=== PATIENT | female | born 1985 | race Caucasian/White ===

== ENCOUNTER 2025-03-24 00:57 | Emergency (ER) | payer OTHER, SELFPAY ==
[2025-03-24 01:00] VITALS: BP 133/82; PULSE 68; RESP 16; TEMP 36.3; O2SAT 99
--- NOTE | 2025-03-24 01:07 | W.ED.GENAD ---
Discharge Plan Disposition Patient Disposition: Home Condition: Good Discharge Details Clinical Impression: Acute rhinosinusitis Primary Care Provider: Violeta Santizo ED Provider: Alba Taylor Home Meds and New Rx's Prescriptions: Continued acetaminophen 500 mg capsule 500 mg PO Q6H PRN Discharge Instructions Instructions: Sinusitis, Adult ED Additional Instructions: Tylenol over the counter for pain. You can use oxymetazoline nasal spray for up to three days- this should help with your symptoms. Use in both nasal passages. Use the fluticasone spray- 2 sprays in each nares daily. Do this after your saline irrigation. You can continue to use saline to irrigate your nasal passages; this may be more effective once you start using the other nasal sprays. You can also take Benadryl (diphehydramine) to help dry out your sinuses; follow the directions on the bottle. Call your primary care doctor in the morning to schedule an appointment for within the next 72 hours to followup on your visit here. Return to the emergency department for new or worsening symptoms including fever, if your symptoms after not improving after 48 hours of treatment, if you develop vision changes, your eye seems swollen, your eye is not moving normally, or if you have any other concerns. HPI General Mode of arrival: ambulatory. Date/Time Provider Initiated Documentation: 03/24/25 01:07. Limitations to Documentation: no limitations. Information obtained by: patient. HPI Narrative: 39yo F reports being ~6 weeks presenting with facial pain. Has had about one week of URI symptoms; rhinnorhea, cough, sore throat which have been improving. For the past 24 hours has noted left sided facial pain which is persitant and worsening, unrelieved by home tylenol. Is keeping her awake. No purulent nasal discharge. No vision changes. Systemically well with no fevers. Related Data Home Medications ?Medication ?Instructions ?Recorded ?Confirmed acetaminophen 500 mg capsule 500 mg PO Q6H PRN 03/24/25 03/24/25 Allergies Allergy/AdvReac Type Severity Reaction Status Date / Time Penicillins Allergy Intermediate Skin Rash Verified 03/24/25 01:07 General Stated Complaint: GenMedical HANG: 4 Review of Systems Narrative: see HPI Exam Narrative Exam Narrative: General: Alert, well appearing, well nourished, in no acute distress. Head: Normocephalic, atraumatic. Markedly TTP over left sided facial sinuses; frontal, maxillary, most tender over ethmoid. Mild tenderness over sphenoid. Right nontender. Neck: Trachea midline, ?Neck supple. No cervical lymphadenopathy. Eye: No proptosis. EOMI. ENT: ?MMM.? No oropharygeal lesions or exudate. TM's clear. Cardiac: ?Well perfused. Resp: No respiratory distress. CTAB Abd: ?Non-distended, Neurologic: GCS 15. ? Moves all extremities freely against gravity Course Vital Signs Vital signs: Vital Signs Temperature 36.3 C L 03/24/25 01:00 Pulse 68 03/24/25 01:00 Respiratory Rate 16 03/24/25 01:00 Blood Pressure 133/82 03/24/25 01:00 Pulse Oximetry 99 03/24/25 01:00 Temperature 36.3 C L 03/24/25 01:00 Temperature Source Tympanic 03/24/25 01:00 Pulse 68 03/24/25 01:00 Respiratory Rate 16 03/24/25 01:00 Blood Pressure 133/82 03/24/25 01:00 Blood Pressure Position Sitting 03/24/25 01:00 Pulse Oximetry 99 03/24/25 01:00 Oxygen Delivery Method Room Air 03/24/25 01:00 Oxygen Flow Rate 0 03/24/25 01:00 Medical Decision Making 39yo F reports being ~6 weeks presenting with facial pain. Has had about one week of URI symptoms; rhinnorhea, cough, sore throat which have been improving. For the past 24 hours has noted left sided facial pain which is persitant and worsening, unrelieved by home tylenol. Systemically well with no fevers. Vitals signs reassuring on arrival, left facial sinuses TTP on exam. History and exam not suggestive of periorbital or oribtal cellulits, meningitis, cavernous sinus thrombosis; would not get labs or CT imaging. Must consider status for symptomatic treatment; regrettably ibuprofen/toradol ill advised. Will advise flonase daily, 3 days of afrin, continued nasal irrigation, benadyrl. Advised her to discuss pseudephedrine with her PCP or OB. Offered covid/flu swab which she declined. Discharged home; discharge instructions and return precautions were reviewed with patient who verbalized understanding. All questions were answered and she is in full agreement with the plan. PFSH All Active Problems (Updated 03/24/25 @ 01:33 by Alba Taylor MD) Acute rhinosinusitis (Acute) Social History Smoking/Tobacco Use Status: Never Smoking risk assessment performed?: Yes Alcohol Intake: never Drug use: Never Substance use type: does not use
[2025-03-24 01:13] VITALS: RESP 16
[2025-03-24] MEDS: Oxymetazolone 0.05% SPRAY 15 ML BTL NS (01:32)
[2025-03-24] MEDS: diphenhydrAMINE 25 MG CAP 50 MG PO (01:32)
[2025-03-24] MEDS: Fluticasone NASAL SPRAY 16 GM BTL NS (01:38)
== END 2025-03-24 01:41 | disposition home or self-care (01) ==
PROVIDERS: Emergency Provider Student in an Organized Health Care Education/Training Program; PCP Nurse Practitioner Family
DX: J01.90 Acute sinusitis, unspecified (principal); Z3A.01 Less than 8 weeks gestation of pregnancy
CPT/HCPCS: 99282 ×2